=== PATIENT | female | born 1950 | race Caucasian/White ===

== ENCOUNTER 2024-03-11 15:50 | Emergency (ER) | payer MEDICARE, MEDICAID, SELFPAY ==
[2024-03-11 15:51] VITALS: BP 151/58; PULSE 102; RESP 16; TEMP 36.8; O2SAT 99; BMI 24.2
[2024-03-11 16:02] VITALS: BP 124/74; PULSE 109; RESP 16; O2SAT 96
--- NOTE | 2024-03-11 16:20 | CT_ITS ---
STUDY: CT ABDOMEN AND PELVIS WITH CONTRAST REASON FOR EXAM: Female, 73 years old. Diarrhea RADIATION DOSAGE (If Supplied By Facility): CTDIvol = ( 22.62 ) mGy, DLP = ( 982.42 ) mGycm TECHNIQUE: Transaxial images were obtained from the dome of the diaphragm to the symphysis pubis without oral contrast. IV 100mL Isovue-370 was administered. Sagittal and coronal images were reconstructed. CT/Abdomen/Pelvis W IV Cont ONLY IMPRESSION: No acute abdominal/pelvic pathology. Electronically Signed: Noah Rome DO at 17:48 EDT Reading Location ID and State: [facility] / [place] Tel [phone], Service support ,
--- NOTE | 2024-03-11 16:20 | EKG12_ITS ---
Test Reason : GENERAL ILLNESS Blood Pressure : / mmHG Vent. Rate : 096 BPM Atrial Rate : 096 BPM P-R Int : 186 ms QRS Dur : 068 ms QT Int : 332 ms P-R-T Axes : 035 023 037 degrees QTc Int : 419 ms Normal sinus rhythm Normal ECG Confirmed by SERGIO JACKSON MD ([id number]), editor managing director MARGARITA BEDOLLA ([id number]) on 03/13/2024 8:19:09 AM Referred By: Confirmed By:SERGIO JACKSON MD
--- NOTE | 2024-03-11 16:20 | CT_ITS ---
STUDY: CT BRAIN WITHOUT CONTRAST REASON FOR EXAM: Female, 73 years old. Headache RADIATION DOSAGE (If Supplied By Facility): CTDIvol = ( 44.99 ) mGy, DLP = ( 745.49 ) mGycm TECHNIQUE: Transaxial CT imaging of the brain was performed without administration of intravenous contrast material. Individualized dose optimization techniques were used for this CT. COMPARISON: No relevant priors. FINDINGS: Normal soft tissue structures. Normal calvarium. Normal size ventricles and extra-axial spaces for the patient''s age. Mild white matter microangiopathic ischemic changes of the cerebral hemispheres. Normal basal ganglia and thalami. Normal brainstem. Normal cerebellum. There is no intracranial hemorrhage. There are no findings of an acute ischemic infarction. Normal visualized paranasal sinuses. CT/Brain/Head without Contrast IMPRESSION: Age-related changes of the brain. Electronically Signed: Noah Rome DO at 17:39 EDT ,
--- NOTE | 2024-03-11 16:20 | RAD_ITS ---
INDICATION: CAD EXAMINATION/TECHNIQUE: X-RAY - XR Chest 1 View COMPARISON: FINDINGS: LINES/DEVICES: None. LUNGS: No consolidation, edema or effusion. No pneumothorax. MEDIASTINUM AND CARDIOVASCULAR STRUCTURES: Cardiac silhouette not enlarged. Central airways and mediastinal contour are unremarkable. BONES AND SOFT TISSUES: Unremarkable. RAD/Chest 1 View (Portable) IMPRESSION: No radiographic evidence of acute cardiopulmonary disease. Electronically Signed: Noah Rome DO at 17:50 EDT ,
--- NOTE | 2024-03-11 16:21 | EDS_ITS ---
HPI History of Present Illness Chief Complaint: General Illness Narrative Narrative: 73-year-old female presents with her caregiver for multiple somatic complaints. She states that she has had a headache for the last 4 days. She states it feels like the top of her head is going to blow off. Additionally, she felt generalized weakness and lightheadedness and had a fall yesterday. She now complains of left shoulder pain. Additionally, she has had diarrhea. Her caregiver also states that her blood sugars were running high today in the 300s. She does not take insulin for diabetes takes 3 different pills including metformin. [facility] Medical History Diabetes HTN (hypertension) Hyperlipemia Neuropathy Osteoporosis Home Medications aspirin 81 mg tablet,delayed release 81 mg PO DAILY 03/11/24 [History Last Taken Unknown] atorvastatin 20 mg tablet 20 mg PO QHS 03/11/24 [History Last Taken Unknown] calcium carbonate 600 mg-vitamin D3 5 mcg (200 unit) tablet 2 tab PO DAILY 03/11/24 [History Last Taken Unknown] dapagliflozin propanediol 5 mg tablet (Farxiga) 5 mg PO DAILY 03/11/24 [History Last Taken Unknown] gabapentin 600 mg tablet 600 mg PO TID 03/11/24 [History Last Taken Unknown] lisinopril 10 mg tablet 10 mg PO DAILY 03/11/24 [History Last Taken Unknown] metformin 1,000 mg tablet 1,000 mg PO BID 03/11/24 [History Last Taken Unknown] sitagliptin phosphate 100 mg tablet (Januvia) 100 mg PO DAILY 03/11/24 [History Last Taken Unknown] Allergy/AdvReac Type Severity Reaction Status Date / Time Penicillins Allergy Severe Other Verified 03/11/24 15:56 Surgical History H/O: section Social History household members: children housing: house current occupational status: retired Smoking Status: Never smoker ROS ROS ED ROS Narrative Constitutional: No fever, positive chills. HEENT: No sore throat. No neck pain. No loss of vision. No rhinorrhea. Cardiovascular: Left shoulder pain/chest pain. No palpitations. No pedal edema. Respiratory: No cough, no shortness of breath. Abdominal: No abdominal pain. No nausea. No vomiting. Positive diarrhea. No bloody stools. Genitourinary: No dysuria. No hematuria. Musculoskeletal: No myalgias. No arthralgias. Neurologic: 4 days of headaches. No dizziness. Positive lightheadedness. Positive generalized weakness. Skin: No rash. No change in color. Psychiatric: No depression. No anxiety. EXAM Physical Exam Narrative Exam Narrative: Afebrile. Vital signs noted. HEENT: Normocephalic. Atraumatic. PERRL, EOMI. Neck soft and supple. No point tenderness or step off. Cardiovascular: Regular rate and rhythm with intermittent tachycardia. No murmurs, rubs, or gallops appreciated. Respiratory: No tachypnea. Lungs clear to auscultation bilaterally. Gastrointestinal: Abdomen soft, nontender, with normoactive bowel sounds. No rebound or guarding. Neurological: Awake. Alert. Nonfocal, nonlateralizing. Skin: No rash. Normal color. No pallor. Musculoskeletal: No pedal edema. Full range of motion extremities. Const Vital Signs: 03/11/24 15:51 03/11/24 16:02 03/11/24 16:02 Temperature 98.2 F Temperature Source Oral Pulse Rate 102 H 109 H Respiratory Rate 16 16 Respiratory Effort Normal Non-Labored Respiratory Pattern Normal Blood Pressure 151/58 H 124/74 H Blood Pressure Mean 89 90 Pulse Ox 99 96 Oxygen Delivery Method Room Air 03/11/24 18:00 Temperature Temperature Source Pulse Rate 85 Respiratory Rate 18 Respiratory Effort Respiratory Pattern Blood Pressure 110/73 Blood Pressure Mean 85 Pulse Ox 97 Oxygen Delivery Method [facility] [place] Narrative Medical decision making narrative: In the differential diagnosis for headache is intracranial hemorrhage versus viral syndrome headache. I do feel CT imaging is indicated as she states she usually does not get headaches. I do not think that she has a hypertensive headache although her blood pressure initially was 151/58 and has come down to 124/74. For her generalized weakness, she may be dehydrated and have an electrolyte imbalance from her diarrhea. CBC and CMP will be obtained. She states that she was nauseated so she was administered a bolus of normal saline and ondansetron 4 mg intravenously. I will also obtain an EKG and a single troponin. Chest x-ray in 1 view will be obtained to help rule out pneumonia as a cause of her weakness, and UA will be obtained to help rule out UTI. This can also be checked for ketones. I reviewed her laboratory work from today and she has normal white count of 8.4, hemoglobin normal at 13.1, platelet count normal at 224. Electrolyte panel shows sodium low at 131 with normal potassium of 4.2. Her glucose is elevated at 335, which may be the cause of her low sodium. She has a BUN of 40 with creatinine slightly elevated at 1.66. There is no prior with which to compare. High-sensitivity troponin is normal at 23. EKG was obtained and interpreted by myself independently as sinus tachycardia 102 bpm without ectopy or acute ST changes. No STEMI. I do not feel that her generalized weakness is from an acute coronary syndrome. After initial IV fluid bolus, she feels improved and she states her headache has improved, she has a heart rate of 85 currently. Hence, I do feel that she probably has intravascular volume depletion. CT of the brain was obtained and I reviewed the radiology report which shows no evidence of acute hemorrhage, there are chronic involutional changes. Chest x- ray 1 view interpreted by myself shows no evidence of pneumonia or pneumothorax. I reviewed the radiology report which confirms my independent interpretation. CT of the abdomen and pelvis shows no acute process in review of the radiology report. There is no colitis or no cause for her diarrhea. She will be bolused a second liter of IV fluids and her blood sugar checked. As long as it is trending downward, I do feel she can be discharged safely home. I reviewed her respiratory swabs and they are negative for COVID, influenza, and RSV as well. As she feels improved, she was told to follow-up with her primary care provider regarding her elevated blood sugars because she may need a change in her medications for her diabetes. I do not feel she requires observation or admission. Repeat BGT's after first bolus and second bolus and 4 units of insulin are downtrending. Disposition is discharged home in stable condition. History & Record Review Discussion w/independent historian: Patient and Family (Son) Lab Data Attestation: I reviewed the patient's lab results. Labs: Laboratory Results - last 24 hr 03/11/24 03/11/24 03/11/24 16:35 17:45 18:24 WBC 8.4 RBC 4.17 L Hgb 13.1 Hct 38.7 MCV 92.8 MCH 31.4 MCHC 33.9 RDW Std Deviation 43.0 RDW Coeff of Jorge 12.6 Plt Count 224 MPV 10.0 Immature Gran % (Auto) 0.400 Neut % (Auto) 73.5 H Lymph % (Auto) 14.6 L [place] % (Auto) 9.6 Eos % (Auto) 1.1 Baso % (Auto) 0.8 Absolute Neuts (auto) 6.2 Absolute Lymphs (auto) 1.23 Nucleated RBC % 0 Sodium 131 L Potassium 4.2 Chloride 99 Carbon Dioxide 23.0 Anion Gap 9 BUN 40 H Creatinine 1.66 H Estim Creat Clear Calc 24.23 Est GFR (MDRD) Af Amer 39 L Est GFR (MDRD) Non-Af 32 L BUN/Creatinine Ratio 24.1 H Glucose 335 H Calcium 9.6 Total Bilirubin 1.00 AST 13 L ALT 18 Alkaline Phosphatase 62 Troponin I High Sens 23 Total Protein 8.0 Albumin 3.4 Globulin 4.6 H Albumin/Globulin Ratio 0.7 L Urine Color Yellow Urine Clarity Clear Urine pH 5.0 Ur Specific [place] 1.010 Urine Protein 15 H Urine Glucose (UA) 1000 H Urine Ketones 15 H Urine Occult Blood Negative Urine Nitrite Negative Urine Bilirubin Negative Urine Urobilinogen Normal Ur Leukocyte Esterase Negative Urine RBC 0 SEEN Urine WBC 0 SEEN Ur Squamous Epith Cells 0-5 SEEN Urine Bacteria 0 SEEN Urine Mucus 0 SEEN POC Glucose 252 H Radiography Diagnostic Testing: Clinical Impression(s) from Imaging Studies Abdomen/Pelvis CT 03/11/24 16:20 IMPRESSION: No acute abdominal/pelvic pathology. Electronically Signed: Noah Rome DO at 17:48 EDT , Brain CT 03/11/24 16:20 IMPRESSION: Age-related changes of the brain. Electronically Signed: Noah Rome DO at 17:39 EDT , Chest X-Ray 03/11/24 16:20 IMPRESSION: No radiographic evidence of acute cardiopulmonary disease. Electronically Signed: Noah Rome DO at 17:50 EDT , Discharge Plan Triage Chief Complaint: General Illness ED Provider: Jason Story Dx/Rx/DC Orders Clinical Impression: Generalized weakness, Headache, Hyperglycemia Instructions: ED Diabetic Hyperglycemia, ED Pain, Acute, Uncertain Cause, ED Weakness (Uncertain Cause) Prescriptions: No Action gabapentin 600 mg tablet 600 mg PO TID atorvastatin 20 mg tablet 20 mg PO QHS calcium carbonate-vitamin D3 600 mg-5 mcg (200 unit) tablet 2 tab PO DAILY aspirin 81 mg tablet,delayed release (DR/EC) 81 mg PO DAILY metformin 1,000 mg tablet 1,000 mg PO BID lisinopril 10 mg tablet 10 mg PO DAILY Januvia 100 mg tablet 100 mg PO DAILY dapagliflozin propanediol [Farxiga] 5 mg tablet 5 mg PO DAILY Primary Care Provider: Care Physician,No Primary Referrals: Care Physician,No Primary [Primary Care Provider] - Activity Restrictions/Additional Instructions: Follow-up with your primary care provider regarding your elevated blood sugars. You may need increase in your medication. Disposition Disposition: Home, Self Care
[2024-03-11] MEDS: Ondansetron 4 MG/2 ML Vial IV (16:31)
[2024-03-11] MEDS: 0.9% Normal Saline (1000mL) 1,000 ML 1000 ML IV (16:31)
[2024-03-11 16:49] LABS: Absolute Lymphocyte Count 1.23 X10^3/uL (0.83-4.51); Absolute Neutrophil Count 6.2 X10^3/uL (2.0-7.7); Basophil# 0.07 X10^3/uL; Basophil% 0.8 % (0-1); Eosinophil# 0.09 X10^3/uL; Eosinophils% 1.1 % (0-5); Hematocrit 38.7 % (37-47); Hemoglobin 13.1 g/dL (12.0-15.0); Lymphocyte # 1.23 X10^3/ul (0.83-4.51); Lymphocyte % 14.6 % (19-41); Mean Corp Hgb Conc 33.9 g/dL (32-36); Mean Corpuscular Hgb 31.4 pg (27.0-32.0); Mean Corpuscular Volume 92.8 fL (81-99); Monocyte# 0.81 X10^3/uL; Monocyte% 9.6 % (0-10); NRBC Flagged by Analyzer 0 % (0-5); Neutrophil # 6.19 X10^3/uL (2.7-7.7); Neutrophil % 73.5 % (47-70); Platelet Count 224 K/mm3 (150-450); RBC Distribution Width CV 12.6 % (11.6-14.6); Red Blood Count 4.17 M/mm3 (4.2-5.4); White Blood Count 8.4 K/mm3 (4.4-11.0)
[2024-03-11 17:07] LABS: ALB/GLOB Ratio 0.7 RATIO (0.9-2.4); AST(SGOT) 13 U/L (15-37); Alanine Aminotransfer ALT/SGPT 18 U/L (13-56); Albumin, Serum 3.4 g/dL (3.2-5.0); Alkaline Phosphatase 62 U/L (45-117); Anion Gap 9 (5-15); BUN 40 mg/dL (7-18); BUN/Creat Ratio 24.1 RATIO (10-20); Calcium,Total 9.6 mg/dL (8.5-10.1); Chloride 99 mmol/L (98-107); Creatinine, Serum 1.66 mg/dL (0.55-1.02); EST Glomerular Filtration Rate 32 mL/min (>60); Est Glom Filt Rate - Afr Amer 39 mL/min (>60); Estimated Creatinine Clearance 24.23 ml/min; Globulin 4.6 g/dL (2.2-4.2); Glucose 335 mg/dL (74-106); Potassium 4.2 mmol/L (3.5-5.1); Sodium Level 131 mmol/L (136-145); Troponin-I HS 23 pg/mL (3.0-54.0)
[2024-03-11] MEDS: 0.9% Normal Saline (1000mL) 1,000 ML 999 ML IV (17:51)
[2024-03-11 17:52] LABS: Bacteria 0 SEEN /hpf (None Seen); Mucous, Urine 0 SEEN /hpf (<or=2+); Red Blood Cells-Urine 0 SEEN /hpf (0-5); White Blood Cells 0 SEEN /hpf (0-5)
[2024-03-11 17:53] LABS: Color, Urine Yellow (Yellow); Glucose, Dipstick 1000 mg/dl (Normal); Ketone-Dipstick 15 mg/dl (Negative); Leukocyte Esterase-Dipstick Negative /ul (Negative); Nitrite-Dipstick Negative (Negative); Occult Blood-Urine Negative /ul (Negative); Protein-Dipstick 15 mg/dl (Negative); Urine Bilirubin Dipstick Negative (Negative); Urine Clarity Clear (Clear); Urine Urobilinogen Normal (Normal)
[2024-03-11 18:00] VITALS: BP 110/73; PULSE 85; RESP 18; O2SAT 97
[2024-03-11 18:00] LABS: Squamous Epithelial Cells - UA 0-5 SEEN /hpf (5-10)
[2024-03-11 18:41] LABS: Bedside Glucose 252 mg/dL (74-106)
[2024-03-11 19:43] VITALS: BP 98/71; PULSE 90; RESP 20; TEMP 36.6; O2SAT 97
[2024-03-11 19:49] LABS: Bedside Glucose 214 mg/dL (74-106)
== END 2024-03-11 19:51 | disposition home or self-care (01) ==
PROVIDERS: Emergency Provider Emergency Medicine; Visit Provider Emergency Medicine
DX: E11.65 Type 2 diabetes mellitus with hyperglycemia (principal); R53.1 Weakness; R51.9 Headache, unspecified; Z79.84 Long term (current) use of oral hypoglycemic drugs; I10 Essential (primary) hypertension; E78.5 Hyperlipidemia, unspecified; Z79.82 Long term (current) use of aspirin; Z79.899 Other long term (current) drug therapy
CPT/HCPCS: 70450; 71045; 74177; 80053; 81001; 82962; 84484; 85025; 87631; 93005; 96361; 96374; 96375; 96376; 99284; J7030; P9612; Q9967; A4216; J2405